=== PATIENT | female | born 1955 | race Caucasian/White ===

== ENCOUNTER 2021-11-13 12:00 | Inpatient (IN) | payer MEDICAID ==
[~2021-11-13] VITALS: Ht 165.1 cm; Wt 72.6 kg
--- NOTE | 2021-11-13 12:50 | PDOC1 ---
History and Physical Date of Admission Date of Admission DATE: 11/13/21 TIME: 12:50 Identification/Chief Complaint Chief Complaint Left facial numbness Source Source: Patient History of Present Illness History of Present Illness Ms Bales is a 66-year-old female w/ PMHx COPD, Depression, High Cholesterol, Hypertension, breast ca s/p right mastectomy, ETOH abuse, smoker came to [facility] in [place], [place] via EMS for left-sided face and upper extremity tingling. Patient states that she woke up around 0300 on 11/13/2021 like this, but they were not present when she went to bed at 2300. Patient describes it as a [id number] feeling, but can still feel touch. Denies any chest pain. Patient states she sleeps in a recliner and takes a nighttime sleep aid, she says 300mg of diphenhydramine. Patient has a history of COPD and is noted increased productive cough that is productive. She notes she has history of CAD with stents and takes aspirin and Plavix Labs with WBC 6.4, Hb 14.8, platelets 271, NA 135, K4.4, BUN 6, CR 0.5, glucose 99, calcium 8.9, phosphorus 4.7, magnesium 1.9, bilirubin 0.6, AST 21, ALT 32, alkaline phosphatase 103, CK 43, NT proBNP is 62, albumin 3.5, troponin is 6. EKG appears sinus rhythm, heart rate 85, no STEMI. Non-contrast CT head with Subtle hypodensity within the right thalamus (series 2 image 15) measures 6 x 4 mm. Chest radiograph with left basilar patchy opacity consistent with pneumonia. Transferred to [facility] for further care Past Medical History Cardiovascular: CAD, HTN Pulmonary: COPD Past Surgical History Past Surgical History: Breast Biopsy (Right) Family History Family History: High Cholestrol, Hypertension Social History Smoke: 2 packs per day ALCOHOL: heavy (6 beers per day) Drugs: Marijuana Allergies Allergies: Coded Allergies: No Known Drug Allergies (Unverified , 11/13/21) ROS General: YES: Fatigue, Malaise; No: Chills, Night Sweats, Appetite, Other PSYCHOLOGICAL ROS: YES: Anxiety, Concentration difficultie, Irritablity, Mood Swings, Obsessive thoughts, Sleep disturbances; No: Behavioral Disorder, Decreased libido, Depression, Disorientation, Hallucinations, Hostility, Memory difficulties, Physical abuse, Sexual abuse, Suicidal ideation, Other Eyes: No Blurry vision, No Decreased vision, No Double vision, No Dry eyes, No Excessive tearing, No Eye Pain, No Itchy Eyes, No Loss of vision, No Photophobia, No Scotomata, No Uses contacts, No Uses glasses, No Other HEENT: No: Heacaches, Visual Changes, Hearing change, Nasal congestion, Nasal discharge, Oral lesions, Sinus pain, Sore Throat, Epistaxis, Sneezing, Snoring, Tinnitus, Vertigo, Vocal changes, Other ALLERGY AND IMMUNOLOGY: No: Hives, Insect Bite Sensitivity, Itchy/Watery Eyes, Nasal Congestion, Post Nasal Drip, Seasonal Allergies, Other Hematological and Lymphatic: No: Bleeding Problems, Blood Clots, Blood Trans fusions, Brusing, Night Sweats, Pallor, Swollen Lymph Nodes, Other ENDOCRINE: No: Breast Changes, Galactorrhea, Hair Pattern Changes, Hot Flashes, Malaise/lethargy, Mood Swings, Palpitations, Polydipsia/polyuria, Skin Changes, Temperature Intolerance, Unexpected Weight Changes, Other Breast: No New/Changing Breast Lumps, No Nipple changes, No Nipple discharge, No Other Respiratory: YES: Cough, Shortness of breath, SOB with excertion, Tachypnea, Wheezing; No: Hemoptysis, Orthopnea, Pleuritic Pain, Sputum Changes, Stridor, Other Cardiovascular: No Chest Pain, No Palpitations, No Orthopnea, No Paroxysmal Noc. Dyspnea, No Edema, No Lt Headedness, No Other Gastrointestinal: No Nausea, No Vomiting, No Abdominal Pain, No Diarrhea, No Constipation, No Melena, No Hematochezia, No Other Genitourinary: No Dysuria, No Frequency, No Incontinence, No Hematuria, No Retention, No Discharge, No Urgency, No Pain, No Flank Pain, No Other, No , No , No , No , No , No , No Musculoskeletal: No Gait Disturbance, No Joint Pain, No Joint Stiffness, No Joint Swelling, No Muscle Pain, No Muscular Weakness, No Pain In:, No Swelling In:, No Other Neurological: Yes Numbness/Tingling; No Behavorial Changes, No Bowel/Bladder ControlChng, No Confusion, No Dizziness, No Gait Disturbance, No Headaches, No Impaired Coord/balance, No Memory Loss, No Seizures, No Speech Problems, No Tremors, No Visual Changes, No Weakness, No Other Skin: No Dry Skin, No Eczema, No Hair Changes, No Lumps, No Mole Changes, No Mottling, No Nail Changes, No Pruritus, No Rash, No Skin Lesion Changes, No Other, No Acne Physical Exam General: Alert, Oriented X3, Cooperative, mild distress HEENT: Atraumatic, PERRLA, EOMI, Mucous membr. moist/pink Lungs: Other (Bilateral wheezes rhonchi crackles at bases) Heart: S1S2, RRR, no thrills, no rubs, no gallops, no murmurs Abdomen: Normal bowel sounds, Soft, No tenderness, No hepatosplenomegaly, No masses Rectal Exam: not examined Extremities: No clubbing, No cyanosis, No edema, Normal pulses, No tenderness/swelling Skin: No rashes, No breakdown, No significant lesion Neuro: Normal gait, Normal speech, Strength at 5/5 X4 ext, Normal tone, Sensation intact, Cranial nerves 3-12 NL, Reflexes 2+, Other (Decrease sensation left face including forehead) Images Images CT HEAD/BRAIN WO History: Reason: paesthesias left, LEFT SIDE WEAKNESS NUMBNESS, X A FEW HOURS / Spl. Instructions: / History: Comparison: None. Technique: Noncontrast CT imaging was performed of the head. Exposure: One or more of the following individualized dose reduction techniques were utilized for this examination: 1. Automated exposure control 2. Adjustment of the mA and/or kV according to patient size 3. Use of iterative reconstruction technique. Findings: No intracranial hemorrhage. No mass effect. No hydrocephalus. Subtle hypodensity within the right thalamus (series 2 image 15) measures 6 x 4 mm. Imaged orbits are unremarkable. Imaged paranasal sinuses and mastoid air cells are clear. No acute calvarial fracture. Impression: 1. Subtle hypodensity within the right thalamus, may represent age- indeterminate infarct or artifact. Recommend correlation with patient's symptoms and MRI to further assess. Electronically signed by: Justen Ward DO (11/13/2021 8:20 AM) [id number] DICTATED AND SIGNED BY: JUSTEN WARD DO DATE: 11/13/21 0809 CC: MIKE MORALES MD; ALFREDO RAE MD ~ [][address] [address] IMAGING REPORT Signed PATIENT: DENIA BALES ACCOUNT: [id number] : 1955 LOCATION: ER AGE: 66 SEX: F EXAM STATUS: REG ER ORD. PHYSICIAN: MIKE MORALES MD REASON: paesthesias left, LEFT SIDE WEAKNESS & NUMBNESS, X A FEW HOURS PROCEDURE: PORTABLE CHEST 1V XR CHEST 1V History: Reason: paesthesias left, LEFT SIDE WEAKNESS NUMBNESS, X A FEW HOURS / Spl. Instructions: H/O RIGHT SIDE BREAST CANCER / History: Comparison: June 04, 2021 Findings: Mild patchy left basilar opacity. Hyperinflation. No pleural effusion. No pneumothorax. Normal heart size. Prior granulomatous disease within the chest. Impression: 1. Mild patchy left basilar opacity, may represent atelectasis or developing infiltrate. If persistent clinical concern, recommend follow-up. Electronically signed by: Justen Ward DO (11/13/2021 8:09 AM) [id number] VTE Prophylaxis Ordered VTE Prophylaxis Devices: No VTE Pharmacological Prophylaxi: Yes Assessment/Plan Assessment/Plan Left sided numbness and tingling -still present face arm tingling has improved since admission Left basilar pneumonia -likely gram-negative given COPD and smoking history we will cover with antibiotics. Abnormal CT head -possible evidence of late presentation of CVA. Neurology consulted COPD - nebulizers Depression - cont home meds High Cholesterol - statin Hypertension - goal BP < 230/110 ETOH abuse- [facility]WA protocol Smoker counseled on cessation given nicotine replacement therapy she does not wish for this Breast ca s/p right mastectomy - on arimidex, continue Hypothyroidism - cont levothyroxine FEN - Regular diet pending carmenza PPX -Heparin FULL CODE Dispo - inpatient Justifications for Admission Other Justification FAN SMITH MD November 13, 2021 12:50
[2021-11-13] MEDS ORDERED: ACETAMINOPHEN 325 MG TABLET. PO PRN (13:15)
[2021-11-13] MEDS ORDERED: ONDANSETRON PF 4 MG/2 ML VIAL. IVP PRN (13:15)
[2021-11-13] MEDS ORDERED: hydrALAZINE 20 MG/ML VIAL. IVP PRN (13:15)
[2021-11-13 14:42] VITALS: BP 155/90
[2021-11-13] MEDS ORDERED: FLUT1DIS IH (15:58)
[2021-11-13] MEDS ORDERED: LEVO50TA78 PO (16:05)
[2021-11-13] MEDS ORDERED: BUPR150T21 PO (16:06)
[2021-11-13] MEDS ORDERED: CLOP75TA PO (16:08)
[2021-11-13] MEDS ORDERED: LOSA-73 PO (16:08)
[2021-11-13] MEDS ORDERED: ANAS1TAB47 PO (16:09)
[2021-11-13] MEDS ORDERED: SIMV20TA18 PO (16:10)
[2021-11-13] MEDS ORDERED: METO-239 PO (16:11)
[2021-11-13] MEDS ORDERED: ASPIRIN RECTAL 300 MG SUPP. PR PRN (16:15)
[2021-11-13] MEDS ORDERED: IOHEXOL 300 MG/ML 100ML VIAL. IV ONE ×2 (17:45→20:30)
[2021-11-13] MEDS ORDERED: CONTRAST GIVEN. MC PRN (18:00)
[2021-11-13 19:10] VITALS: BP 129/78
--- NOTE | 2021-11-13 19:55 | NUR ---
Pt in bed assessment completed vss poc explained pt denied pain at this time will resume care and continue to monitor pt. Call light in reach.
[2021-11-13] MEDS: ALBUTEROL SULFATE 2.5 MG/3 ML NEBU. NEB SCH (20:00)
[2021-11-13] MEDS: BUDESONIDE 0.5 MG/2 ML NEBU. NEB SCH (20:00)
[2021-11-13] MEDS ORDERED: ZOLPIDEM 5 MG TABLET. PO PRN (22:00)
[2021-11-13 22:50] VITALS: BP 118/74
[2021-11-14] MEDS ORDERED: LEVOTHYROXINE 50 MCG TABLET PO SCH (06:00)
[2021-11-14 07:00] VITALS: BP 144/94
--- NOTE | 2021-11-14 07:22 | PDOC ---
[employer] PROGRESS NOTE Date of Service DOS: DATE: 11/14/21 TIME: 07:22 Chief Complaint Chief Complaint Left sided numbness and tingling -still present face arm tingling has improved since admission Left basilar pneumonia -likely gram-negative given COPD and smoking history we will cover with antibiotics. Abnormal CT head -possible evidence of late presentation of CVA. Neurology consulted COPD - nebulizers Depression - cont home meds High Cholesterol - statin Hypertension - goal BP < 230/110 ETOH abuse- [facility] protocol Smoker counseled on cessation given nicotine replacement therapy she does not wish for this Breast ca s/p right mastectomy - on arimidex, continue Hypothyroidism - cont levothyroxine FEN - Regular diet PPX -Heparin FULL CODE Dispo - inpatient History of Present Illness History of Present Illness Ms Sotelo is a 66-year-old female w/ PMHx COPD, Depression, High Cholesterol, Hypertension, breast ca s/p right mastectomy, ETOH abuse, smoker came to [facility] in [place], [place] via EMS for left-sided face and upper extremity tingling. Patient states that she woke up around 0300 on 11/13/2021 like this, but they were not present when she went to bed at 2300. Patient describes it as a [id number] feeling, but can still feel touch. Denies any chest pain. Patient states she sleeps in a recliner and takes a nighttime sleep aid, she says 300mg of diphenhydramine. Patient has a history of COPD and is noted increased productive cough that is productive. She notes she has history of CAD with stents and takes aspirin and Plavix Labs with WBC 6.4, Hb 14.8, platelets 271, NA 135, K4.4, BUN 6, CR 0.5, glucose 99, calcium 8.9, phosphorus 4.7, magnesium 1.9, bilirubin 0.6, AST 21, ALT 32, alkaline phosphatase 103, CK 43, NT proBNP is 62, albumin 3.5, troponin is 6. EKG appears sinus rhythm, heart rate 85, no STEMI. Non-contrast CT head with Subtle hypodensity within the right thalamus (series 2 image 15) measures 6 x 4 mm. Chest radiograph with left basilar patchy opacity consistent with pneumonia. Transferred to [facility] for further care 11/14: C-19 given cinolazepam. She still little bit anxious her cough is improved a little bit. Her left arm symptoms have resolved she still has some left perioral numbness and left forehead numbness. CT angio head neck with no large vessel occlusive disease. Unfortunately echocardiogram is not available for another 48 hours on inpatient basis and patient has requested to leave as soon as she can. Counseled on need for modification of her antiplatelet agent. She notes that she actually stopped taking aspirin several months ago. Vitals/I&O Vitals/I&O: Vital Signs Date Time Temp Pulse Resp B/P (MAP) Pulse Ox O2 Delivery O2 Flow Rate FiO2 11/14/21 03:00 98 11/13/21 22:50 98.4 20 94 Room Air 98.4 I & O 11/13/21 11/13/21 11/14/21 15:00 23:00 07:00 Intake Total 620 ml 340 ml Balance 620 ml 340 ml Physical Exam General: Alert, Oriented X3, Cooperative, mild distress Abdomen: Normal bowel sounds, Soft, No tenderness, No hepatosplenomegaly, No masses Extremities: No clubbing, No cyanosis, No edema, Normal pulses, No tenderness/swelling Skin: No rashes, No breakdown, No significant lesion Comment Review of Relevant I have reviewed the following items ira (where applicable) has been applied. Medications: Current Medications Medications (Trade) Dose Ordered Sig/Thony Route PRN Reason Start Time Stop Time Status Last Admin Dose Admin Levothyroxine Sodium (Synthroid) 50 mcg DAILY06 PO 11/14/21 06:00 11/14/21 06:07 Budesonide (Pulmicort) 0.5 mg RTBID NEB 11/13/21 20:00 11/13/21 20:00 Albuterol Sulfate (Ventolin Neb Soln) 2.5 mg RTQID NEB 11/13/21 20:00 11/13/21 20:00 Iohexol (Omnipaque 300 Mg/ml) 75 ml 1X ONCE IV 11/13/21 20:30 11/13/21 20:31 DC 11/13/21 20:30 Zolpidem Tartrate (Ambien) 5 mg PRN QHS PRN PO INSOMNIA, MAY REPEAT IN 1HR 11/13/21 22:00 11/13/21 23:39 Justifications for Admission TIA Indications Persistent neurologic signs?: Yes Justification for admission: There is persistence of patient's focal neurologic signs or symptoms or there is concern for recurrence of patient's neurological signs and symptoms. Other Justification FAN SMITH MD November 14, 2021 07:22
[2021-11-14] MEDS: BUDESONIDE 0.5 MG/2 ML NEBU. NEB SCH (07:30)
[2021-11-14] MEDS: ALBUTEROL SULFATE 2.5 MG/3 ML NEBU. NEB SCH ×2 (07:30→12:56)
[2021-11-14] MEDS ORDERED: ASPIRIN ENTERIC COATED 325 MG TABLET.DR. PO SCH (08:00)
[2021-11-14 08:04] LABS: CHOLESTEROL/HDL RATIO 4.5
[2021-11-14] MEDS ORDERED: CLOPIDOGREL BISULFATE 75 MG TABLET PO SCH (09:00)
[2021-11-14] MEDS ORDERED: LOSARTAN POTASSIUM 50 MG TABLET. PO SCH (09:00)
[2021-11-14] MEDS ORDERED: DOXYCYCLINE HYCLATE 100 MG in IV DEXTROSE 5% 100ML 100 ML IV SCH (09:00)
[2021-11-14] MEDS ORDERED: METOPROLOL SUCC 24HR ER 25 MG TAB.ER.24H. PO SCH (09:00)
[2021-11-14] MEDS ORDERED: SIMVASTATIN 20 MG TABLET PO SCH (09:00)
[2021-11-14] MEDS ORDERED: THIAMINE 100 MG TABLET. PO SCH (09:00)
[2021-11-14] MEDS ORDERED: ANASTROZOLE 1 MG TABLET PO SCH (09:00)
[2021-11-14] MEDS ORDERED: buPROPion XL 150 MG TAB.ER.24H. PO SCH (09:00)
[2021-11-14] MEDS ORDERED: cefTRIAXone IV Push 1 GM VIAL. IVP SCH (09:00)
[2021-11-14] MEDS ORDERED: MULTIVITAMIN with MINERAL TABLET. PO SCH (09:00)
[2021-11-14] MEDS ORDERED: FOLIC ACID 1 MG TABLET. PO SCH (09:00)
--- NOTE | 2021-11-14 10:18 | RAD ---
CTA HEAD AND NECK W/WO CONTRAST History: Reason: righ thalamic stroke / Spl. Instructions: IV omni 300 75 mls / History: Technique: After bolus of intravenous contrast, volumetric CT data acquisition was acquired of the he ad and neck. Multiplanar reconstruction images to include MIP and 3-D reconstruction images are submi tted. Any determination of stenosis is based on NASCET criteria. Comparison: CT head 11/13/21 Findings: Angiogram neck: Aortic arch: Normal caliber. 2 vessel morphology. Moderate atherosclerosis. Common carotid arteries: No stenosis, occlusion or dissection. Internal carotid arteries: No stenosis, occlusion or dissection. External carotid arteries: Patent Vertebral arteries: No stenosis, occlusion or dissection. Angiogram head: ICA: Atherosclerosis of the cavernous segments. No significant stenosis, occlusion or aneurysm. MCA: No stenosis, occlusion or aneurysm. EMERITA: No stenosis, occlusion or aneurysm. DIGITAL STRATEGIST: origin of left posterior cerebral artery. No stenosis, occlusion or aneurysm. Basilar artery: No stenosis, occlusion or aneurysm. Distal vertebral arteries: No stenosis, occlusion or aneurysm. Other: Moderate emphysematous changes in the lung apices. Soft tissues appear normal. No pathologic osseous lesions. Multilevel cervical degenerative disc and facet disease. Impression: 1. No significant arterial stenosis, occlusion or aneurysm within the head or neck. Exposure: One or more of the following individualized dose reduction techniques were utilized for thi s examination: 1. Automated exposure control 2. Adjustment of the mA and/or kV according to patient size 3. Use of iterative reconstruction technique. Electronically signed by: Dewey Mcguire MD (11/14/2021 10:16 AM) [facility]
[2021-11-14 11:00] VITALS: BP 118/73
--- NOTE | 2021-11-14 13:49 | PDOC2 ---
NEUROLOGY CONSULT Date of Service DOS: DATE: 11/14/21 TIME: 13:45 Reason for Consult Reason for Consult: Stroke symptoms Referring Physician Referring Physician: Dr. Glass Source Source: Chart review, Patient History of Present Illness History of Present Illness The patient is a 66-year-old right-handed female last known normal . She went to the [facility] emergency department yesterday with pins and needle feeling on the left side starting yesterday morning. CT of the head demonstrated a right thalamic stroke. Patient admits that she has not been taking her aspirin, she cannot afford any [id number]-[id number] medications because she has no money. She cannot afford to continue smoking some, though. She was also observed to have an abnormal chest x-ray, but is currently having no new pulmonary problems. She does have COPD. She feels fine now, the tingling has resolved except may be on the corner of her left mouth. She would like to go home. She states that she has had a recent echocardiogram with Dr. Leos Past Medical History Cardiovascular: CAD, CHF, HTN, [place] Pulmonary: COPD, Pneumonia Heme/Onc: Cancer (Breast, ovarian) Psych: Anxiety, Depression Musculoskeletal: low back pain, Osteoarthritis Endocrine: Hypothyroidism Past Surgical History Past Surgical History: Other (coronary stent) Family History Family History: Cancer, CAD Social History Social History , less than a pack of cigarettes per day, beer almost every day, she says that she is cutting down Current Medications Current Medications Current Medications Acetaminophen (Tylenol) 650 mg PRN Q6HRS PRN PO MILD PAIN / TEMP > 100.3'F; Start 11/13/21 at 13:15 Ondansetron HCl (Zofran) 4 mg PRN Q4HRS PRN IVP NAUSEA/VOMITING; Start 11/13/21 at 13:15 Hydralazine HCl (Apresoline Inj) 10 mg PRN Q4HRS PRN IVP ELEVATED BP, SEE COMMENTS; Start 11/13/21 at 13:15 Aspirin (Ecotrin) 325 mg DAILYWBKFT PO Last administered on 11/14/21at 09:19; Start 11/14/21 at 08:00 Aspirin (Aspirin Rectal Supp) 300 mg PRN DAILY PRN ID IF UNABLE TO TAKE PO; Start 11/13/21 at 16:15 Iohexol (Omnipaque 300 Mg/ml) 75 ml 1X ONCE IV ; Start 11/13/21 at 17:45; Stop 11/13/21 at 17:46; Status DC Info (CONTRAST GIVEN -- Rx MONITORING) 1 each PRN DAILY PRN MC SEE COMMENTS; Start 11/13/21 at 18:00; Stop 11/15/21 at 17:59 Anastrozole (Arimidex) 1 mg DAILY PO Last administered on 11/14/21at 09:45; Start 11/14/21 at 09:00 Bupropion HCl (Wellbutrin Xl) 150 mg DAILY PO Last administered on 11/14/21at 09:19; Start 11/14/21 at 09:00 Clopidogrel Bisulfate (Plavix) 75 mg DAILY PO Last administered on 11/14/21at 09:19; Start 11/14/21 at 09:00 Levothyroxine Sodium (Synthroid) 50 mcg DAILY06 PO Last administered on 11/14/21at 06:07; Start 11/14/21 at 06:00 Losartan Potassium (Cozaar) 50 mg DAILY PO Last administered on 11/14/21at 09:19; Start 11/14/21 at 09:00 Metoprolol Succinate (Toprol Xl) 12.5 mg DAILY PO Last administered on 11/14/21at 09:18; Start 11/14/21 at 09:00 Simvastatin (Zocor) 20 mg DAILY PO Last administered on 11/14/21at 09:19; Start 11/14/21 at 09:00 Budesonide (Pulmicort) 0.5 mg RTBID NEB Last administered on 11/14/21at 07:30; Start 11/13/21 at 20:00 Albuterol Sulfate (Ventolin Neb Soln) 2.5 mg RTQID NEB Last administered on 11/14/21at 12:56; Start 11/13/21 at 20:00 Iohexol (Omnipaque 300 Mg/ml) 75 ml 1X ONCE IV Last administered on 11/13/21at 20:30; Start 11/13/21 at 20:30; Stop 11/13/21 at 20:31; Status DC Zolpidem Tartrate (Ambien) 5 mg PRN QHS PRN PO INSOMNIA, MAY REPEAT IN 1HR Last administered on 11/13/21at 23:39; Start 11/13/21 at 22:00 Multivitamins (Thera M Plus) 1 tab DAILY PO Last administered on 11/14/21at 09:18; Start 11/14/21 at 09:00 Folic Acid (Folic Acid) 1 mg DAILY PO Last administered on 11/14/21at 09:19; Start 11/14/21 at 09:00 Thiamine Mononitrate (Vitamin B-1) 100 mg DAILY PO Last administered on 11/14/21at 09:18; Start 11/14/21 at 09:00 Lorazepam (Ativan) 1 mg PRN Q1HR PRN PO For CIWA 8-14 Last administered on 11/14/21at 09:19; Start 11/13/21 at 22:30 Lorazepam (Ativan) 2 mg PRN Q1HR PRN PO For CIWA 15 or greater; Start 11/13/21 at 22:30 Lorazepam (Ativan Inj) 1 mg PRN Q1HR PRN IV For CIWA 8-14; Start 11/13/21 at 22:30 Lorazepam (Ativan Inj) 2 mg PRN Q1HR PRN IV For CIWA 15 or greater; Start 11/13/21 at 22:30 Ceftriaxone Sodium (Rocephin) 1 gm Q24H IVP Last administered on 11/14/21at 09:20; Start 11/14/21 at 09:00 Doxycycline Hyclate 100 mg/ Dextrose 100 ml @ 50 mls/hr Q12HR IV Last administered on 11/14/21at 09:21; Start 11/14/21 at 09:00 Active Scripts Active Reported Metoprolol Succinate ( Xl ) (Metoprolol Succinate) 25 Mg Tab.er.24h 12.5 Mg PO D AILY Simvastatin 20 Mg Tablet 20 Mg PO DAILY Arimidex (Anastrozole) 1 Mg Tablet 1 Tab PO DAILY 30 Days Clopidogrel (Clopidogrel Bisulfate) 75 Mg Tablet 75 Mg PO DAILY Losartan Potassium 50 Mg Tablet 50 Mg PO DAILY Bupropion Xl (Bupropion Hcl) 150 Mg Tab.er.24h 150 Mg PO DAILY Euthyrox (Levothyroxine Sodium) 50 Mcg Tablet 50 Mcg PO DAILY Advair 100-50 Diskus (Fluticasone/Salmeterol) 1 Each Disk.w.dev 1 Puff IH BID Allergies Allergies: Coded Allergies: No Known Drug Allergies (Unverified , 11/13/21) ROS Review of System Negative for fever, chills, weight loss, shortness of breath, chest pain, indigestion, hematochezia, melena, and dysuria. Full 14-point review of systems is negative. Physical Exam Physical Examination General: Well-developed, well-nourished white female in no acute distress HEENT:Fundoscopic exam unremarkable Neck: Supple without bruit, no meningismus Musculoskeletal: Stability:see neurologic. Gait exam:see neurologic. Tone:see neurologic.Strength:see neurologic. Neurological: Mental Status:intact, orientation, memory, attention span/concentration, language, fund of knowledge normal. Cranial Nerves:Pupils equal and reactive to light, extraocular movements areintact, visual skinner are full to confrontation. Facial sensation is normal. There is no facial asymmetry. Vestibulo-ocular reflex is intact. Palate elevates and tongue protrudes in midline. All other cranial related problems are negative except as mentioned before.Reflexes:2+ and symmetric with flexor plantar responses. Motor:5/5 strength with normal tone and bulk. Coordination:Finger-nose finger and owkv-in-imam testing are normal. Rapid alternating movements and fine finger movements are intact. Gait:Normal, including tandem. Sensory:Normal pinprick, vibration, light touch, proprioception. Vitals VITALS Vital Signs Date Time Temp Pulse Resp B/P (MAP) Pulse Ox O2 Delivery O2 Flow Rate FiO2 11/14/21 12:56 97 Room Air 11/14/21 09:19 103 144/94 11/14/21 07:00 97.7 20 97.7 Labs Labs Laboratory Tests Test 11/14/21 06:19 Triglycerides Level 110 mg/dL (0-150) Cholesterol Level 248 mg/dL (0-200) LDL Cholesterol, Calculated 171 mg/dL (0-100) VLDL Cholesterol, Calculated 22 mg/dL (0-40) Non-HDL Cholesterol Calculated 193 mg/dL (0-129) HDL Cholesterol 55 mg/dL (40-60) Cholesterol/HDL Ratio 4.5 Laboratory Tests Test 11/14/21 06:19 Triglycerides Level 110 mg/dL (0-150) Cholesterol Level 248 mg/dL (0-200) LDL Cholesterol, Calculated 171 mg/dL (0-100) VLDL Cholesterol, Calculated 22 mg/dL (0-40) Non-HDL Cholesterol Calculated 193 mg/dL (0-129) HDL Cholesterol 55 mg/dL (40-60) Cholesterol/HDL Ratio 4.5 Images Images CTA HEAD AND NECK W/WO CONTRAST, 11/13 History: Reason: righ thalamic stroke / Spl. Instructions: IV omni 300 75 mls / History: Technique: After bolus of intravenous contrast, volumetric CT data acquisition was acquired of the head and neck. Multiplanar reconstruction images to include MIP and 3-D reconstruction images are submitted. Any determination of stenosis is based on NASCET criteria. Comparison: CT head 11/13/21 Findings: Angiogram neck: Aortic arch: Normal caliber. 2 vessel morphology. Moderate atherosclerosis. Common carotid arteries: No stenosis, occlusion or dissection. Internal carotid arteries: No stenosis, occlusion or dissection. External carotid arteries: Patent Vertebral arteries: No stenosis, occlusion or dissection. Angiogram head: ICA: Atherosclerosis of the cavernous segments. No significant stenosis, occlusion or aneurysm. MCA: No stenosis, occlusion or aneurysm. EMERITA: No stenosis, occlusion or aneurysm. HEARSE DRIVER: origin of left posterior cerebral artery. No stenosis, occlusion or aneurysm. Basilar artery: No stenosis, occlusion or aneurysm. Distal vertebral arteries: No stenosis, occlusion or aneurysm. Other: Moderate emphysematous changes in the lung apices. Soft tissues appear normal. No pathologic osseous lesions. Multilevel cervical degenerative disc and facet disease. Impression: 1. No significant arterial stenosis, occlusion or aneurysm within the head or neck. CT HEAD/BRAIN WO, [facility], 11/13 History: Reason: paesthesias left, LEFT SIDE WEAKNESS NUMBNESS, X A FEW HOURS / Spl. Instructions: / History: Comparison: None. Technique: Noncontrast CT imaging was performed of the head. Exposure: One or more of the following individualized dose reduction techniques were utilized for this examination: 1. Automated exposure control 2. Adjustment of the mA and/or kV according to patient size 3. Use of iterative reconstruction technique. Findings: No intracranial hemorrhage. No mass effect. No hydrocephalus. Subtle hypodensity within the right thalamus (series 2 image 15) measures 6 x 4 mm. Imaged orbits are unremarkable. Imaged paranasal sinuses and mastoid air cells are clear. No acute calvarial fracture. Impression: 1. Subtle hypodensity within the right thalamus, may represent age-ind eterminate infarct or artifact. Recommend correlation with patient's symptoms and MRI to further assess. XR CHEST 1V, [facility], 11/13 History: Reason: paesthesias left, LEFT SIDE WEAKNESS NUMBNESS, X A FEW HOURS / Spl. Instructions: H/O RIGHT SIDE BREAST CANCER / History: Comparison: June 04, 2021 Findings: Mild patchy left basilar opacity. Hyperinflation. No pleural effusion. No pneumothorax. Normal heart size. Prior granulomatous disease within the chest. Impression: 1. Mild patchy left basilar opacity, may represent atelectasis or developing infiltrate. If persistent clinical concern, recommend follow-up. Assessment/Plan Assessment/Plan Impression: Right thalamic lacunar stroke demonstrated on the CT head, confluent with her left-sided sensory symptoms, which have resolved. Not a failure on aspirin. Note hyperlipidemia. Recommendations: Discuss with Dr. Sandhu better cholesterol control Patient is willing to take a daily aspirin Discuss with Dr. Leos any additional work-up needed, I could not find a recent echocardiogram even though the patient said that she had one. We discussed smoking cessation, moderating alcohol use No need for any rehab modalities as her symptoms have resolved Okay for discharge Follow-up with me as needed. Thank you for letting me help with the patient's care. MARIO ALBERTO SOTO MD November 14, 2021 13:49
[2021-11-14] MEDS ORDERED: DOXY100T PO (14:12)
[2021-11-14] MEDS ORDERED: ASPI325T11 PO (14:12)
--- NOTE | 2021-11-14 14:16 | PDOC3 ---
Discharge Summary Visit Information Date of Admission: November 13, 2021 Date of Discharge: November 14, 2021 Admitting Diagnosis: Left facial numbness Final Diagnosis CVA, Pneumonia Brief Hospital Course Allergies Allergies Coded Allergies Type Severity Reaction Last Updated Verified No Known Drug Allergies 11/13/21 No Vital Signs Vital Signs Date Time Temp Pulse Resp B/P (MAP) Pulse Ox O2 Delivery O2 Flow Rate FiO2 11/14/21 12:56 97 Room Air 11/14/21 09:19 103 144/94 11/14/21 07:00 97.7 20 97.7 Lab Results Laboratory Tests Test 11/14/21 06:19 Triglycerides Level 110 mg/dL (0-150) Cholesterol Level 248 mg/dL (0-200) LDL Cholesterol, Calculated 171 mg/dL (0-100) VLDL Cholesterol, Calculated 22 mg/dL (0-40) Non-HDL Cholesterol Calculated 193 mg/dL (0-129) HDL Cholesterol 55 mg/dL (40-60) Cholesterol/HDL Ratio 4.5 Laboratory Tests Test 11/14/21 06:19 Triglycerides Level 110 mg/dL (0-150) Cholesterol Level 248 mg/dL (0-200) LDL Cholesterol, Calculated 171 mg/dL (0-100) VLDL Cholesterol, Calculated 22 mg/dL (0-40) Non-HDL Cholesterol Calculated 193 mg/dL (0-129) HDL Cholesterol 55 mg/dL (40-60) Cholesterol/HDL Ratio 4.5 Brief Hospital Course Ms Sotelo is a 66-year-old female w/ PMHx COPD, Depression, High Cholesterol, Hypertension, breast ca s/p right mastectomy, ETOH abuse, smoker came to [facility] in [place], [place] via EMS for left-sided face and upper extremity tingling. Patient states that she woke up around 0300 on 11/13/2021 like this, but they were not present when she went to bed at 2300. Patient describes it as a pphx-bod-wzcvzmv feeling, but can still feel touch. Denies any chest pain. Patient states she sleeps in a recliner and takes a nighttime sleep aid, she says 300mg of diphenhydramine. Patient has a history of COPD and is noted increased productive cough that is productive. She notes she has history of CAD with stents and takes aspirin and Plavix Labs with WBC 6.4, Hb 14.8, platelets 271, NA 135, K4.4, BUN 6, CR 0.5, glucose 99, calcium 8.9, phosphorus 4.7, magnesium 1.9, bilirubin 0.6, AST 21, ALT 32, alkaline phosphatase 103, CK 43, NT proBNP is 62, albumin 3.5, troponin is 6. EKG appears sinus rhythm, heart rate 85, no STEMI. Non-contrast CT head with Subtle hypodensity within the right thalamus (series 2 image 15) measures 6 x 4 mm. Chest radiograph with left basilar patchy opacity consistent with pneumonia. Transferred to [facility] for further care 11/14: She still little bit anxious her cough is improved a little bit. Her left arm symptoms have resolved she still has some left perioral numbness and left forehead numbness. CT angio head neck with no large vessel occlusive disease. Unfortunately echocardiogram is not available for another 48 hours on inpatient basis and patient has requested to leave as soon as she can. Counseled on need for modification of her antiplatelet agent. She notes that she actually stopped taking aspirin several months ago. Consults: neurology Problem list: Left sided numbness and tingling -still present face arm tingling has improved since admission. Right CVA aspirin Plavix statin quit smoking. Left basilar pneumonia -likely gram-negative given COPD and smoking history we will cover with antibiotics. Abnormal CT head -possible evidence of late presentation of CVA. Neurology consulted COPD - nebulizers Depression - cont home meds High Cholesterol - statin Hypertension - goal BP < 230/110 ETOH abuse- CIWA protocol Smoker counseled on cessation given nicotine replacement therapy she does not wish for this Breast ca s/p right mastectomy - on arimidex, continue Hypothyroidism - cont levothyroxine Plan: Aspirin plus Plavix doxycycline for 1 week follow-up outpatient with cardiology for echocardiogram Discharge Information Condition at Discharge: Improved Follow Up: Weeks (2) Disposition/Orders: D/C to Home Scheduled Anastrozole (Arimidex) 1 Mg Tablet, 1 TAB PO DAILY for BREAST CANCER for 30 Days, #30 Ref 0 (Reported) Entered as Reported by: YULIANA ACUNA on 11/13/211608 Last Taken: Unknown Dose on 11/13/21 Last Action: Continued on 11/13/211944 by RENETTA HENSLEY, RN Aspirin (Aspirin Ec) 325 Mg Tablet., 325 MG PO DAILYWBKFT for CVA for 30 Days, #30 Ref 11 Prescribed by: FAN SMITH MD on 11/14/21 1412 Bupropion Hcl (Bupropion Xl) 150 Mg Tab.er.24h, 150 MG PO DAILY for ANXIETY, (Reported) Entered as Reported by: YULIANA ACUNA on 11/13/21 1606 Last Taken: Unknown Dose on 11/13/21 Last Action: Continued on 11/13/211944 by RENETTA HENSLEY RN Clopidogrel Bisulfate (Clopidogrel) 75 Mg Tablet, 75 MG PO DAILY for TO PREVENT BLOOD CLOTS, #30 Ref 0 (Reported) Entered as Reported by: YULIANA ACUNA on 11/13/211607 Last Taken: Unknown Dose on 11/13/21 Last Action: Continued on 11/13/211944 by RENETTA HENSLEY RN Doxycycline Hyclate (Doxycycline Hyclate) 100 Mg Tablet, 1 TAB PO BID for Pneumonia for 7 Days, #14 Prescribed by: FAN SMITH MD on 11/14/21 1412 Fluticasone/Salmeterol (Advair 100-50 Diskus) 1 Each Disk.w.dev, 1 PUFF IH BID for SOA/COUGH, #1 Ref 5 (Reported) Entered as Reported by: YULIANA ACUNA on 11/13/21 155 Last Action: Converted on 11/13/211944 by RENETTA HENSLEY RN Levothyroxine Sodium (Euthyrox) 50 Mcg Tablet, 50 MCG PO DAILY for HYPOTHYROIDISM, (Reported) Entered as Reported by: YULIANA ACUNA on 11/13/211604 Last Taken: Unknown Dose on 11/13/21 Last Action: Continued on 11/13/211944 by RENETTA HENSLEY RN Losartan Potassium (Losartan Potassium) 50 Mg Tablet, 50 MG PO DAILY for HYPERTENSION, (Reported) Entered as Reported by: YULIANA ACUNA on 11/13/211607 Last Taken: Unknown Dose on 11/13/21 Last Action: Continued on 11/13/211944 by RENETTA HENSLEY RN Metoprolol Succinate (Metoprolol Succinate ( Xl )) 25 Mg Tab.er.24h, 12.5 MG PO DAILY for FOR HYPERTENSION, #30 Ref 0 (Reported) Entered as Reported by: YULIANA ACUNA on 11/13/21 1611 Last Taken: Unknown Dose on 11/13/21 Last Action: Continued on 11/13/211944 by RENETAT HENSLEY RN Simvastatin (Simvastatin) 20 Mg Tablet, 20 MG PO DAILY for FOR CHOLESTEROL, #30 Ref 0 (Reported) Entered as Reported by: YULIANA ACUNA on 11/13/211609 Last Taken: Unknown Dose on 11/13/21 Last Action: Continued on 11/13/211944 by RENETTA HENSLEY RN Justicifation of Admission Dx: Justifications for Admission: Justification of Admission Dx: Yes FAN SMITH MD November 14, 2021 14:16
[2021-11-14 15:00] VITALS: BP 142/61
--- NOTE | 2021-11-14 15:51 | NUR ---
Discharge Note: DENIA BALES Discharge instructions and discharge home medications reviewed with Patient and a copy given. All questions have been answered and understanding verbalized. Pt anxious to get home. Pt IV removed. Pt in stable condition at time of discharged, wheeled down to taxi with voucher for dc.
== END 2021-11-14 15:20 | disposition home or self-care (01) | DRG 64 ==
LOC: 6 SOUTH 12:00
PROVIDERS: ADMIT Internal Medicine; ATTEND Internal Medicine
DX: I63.81 Other cerebral infarction due to occlusion or stenosis of small artery (principal); J15.6 Pneumonia due to other Gram-negative bacteria; J44.0 Chronic obstructive pulmonary disease with (acute) lower respiratory infection; E03.9 Hypothyroidism, unspecified; E78.00 Pure hypercholesterolemia, unspecified; E78.5 Hyperlipidemia, unspecified; F10.10 Alcohol abuse, uncomplicated; F17.210 Nicotine dependence, cigarettes, uncomplicated; F32.A Depression, unspecified; I11.0 Hypertensive heart disease with heart failure; I25.10 Atherosclerotic heart disease of native coronary artery without angina pectoris; I50.9 Heart failure, unspecified; Z79.82 Long term (current) use of aspirin; Z82.49 Family history of ischemic heart disease and other diseases of the circulatory system; Z85.3 Personal history of malignant neoplasm of breast; Z90.11 Acquired absence of right breast and nipple; Z95.5 Presence of coronary angioplasty implant and graft; F41.9 Anxiety disorder, unspecified; M19.90 Unspecified osteoarthritis, unspecified site
CPT/HCPCS: 36415; 70496; 70498; 80061; 94640; 99406; J0696; J3490; J7060; Q9967; 92610-GN; G0378; J7613; J7626